=== PATIENT | female | born 1950 | race Hispanic/Latino ===

== ENCOUNTER 2019-06-20 22:15 | Emergency (ER) | payer OTHER ==
[2019-06-20 23:18] LABS: BASOPHILS % (AUTO) 0.4 % (0.0-5.0); EOSINOPHILS % (AUTO) 0.3 % (0.0-8.0); HEMATOCRIT 40.6 % (36-48); LYMPHOCYTES % (AUTO) 11.2 % (21.0-51.0); MEAN CORPUSCULAR HEMOGLOBIN 30.2 pg (27.0-33.0); MEAN CORPUSCULAR VOLUME 88.7 fL (79-99); MONOCYTES % (AUTO) 4.7 % (3.0-13.0); NEUTROPHILS % (AUTO) 83.4 % (40.0-77.0); PLATELET COUNT (AUTO) 281 K/uL (130-400); RED BLOOD CELL COUNT(AUTO) 4.58 MIL/uL (4.00-5.50); RED CELL DISTRIBUTION WIDTH 16.7 % (11.0-15.5); WHITE BLOOD COUNT (AUTO) 10.2 K/uL (4.8-10.8)
[2019-06-20 23:27] LABS: CREATININE 0.8 mg/dL (0.5-1.5); POTASSIUM 3.9 mmol/L (3.5-5.1)
[2019-06-20 23:29] LABS: ALBUMIN 3.8 g/dL (3.5-5.0); BILIRUBIN,TOTAL 0.5 mg/dL (0.2-1.0); TOTAL PROTEIN, SERUM 7.1 g/dL (6.0-8.3)
[2019-06-20] MEDS ORDERED: ONDANSETRON HCL 4 MG/2 ML VIAL ONE (23:35)
[2019-06-20] MEDS ORDERED: MORPHINE SULFATE 4 MG/1ML SYG ONE (23:35)
[2019-06-20] MEDS ORDERED: SODIUM CHLORIDE 0.9% 1000ML 1,000 ML IV ONE (23:36)
[2019-06-20 23:47] LABS: APPEARANCE,URINE Clear (CLEAR); BILIRUBIN,URINE Negative (NEGATIVE); COLOR,URINE Yellow (YELLOW); GLUCOSE, URINE (UA) Negative (NEGATIVE); KETONES,URINE Negative (NEGATIVE); LEUKOCYTE ESTERASE ,URINE Trace (NEGATIVE); NITRATE,URINE Negative (NEGATIVE); OCCULT BLOOD,URINE Negative (NEGATIVE); PH,URINE 6.5 (5.0-8.0); PROTEIN,URINE Negative (NEGATIVE)
[2019-06-21 00:01] LABS: BACTERIA,URINE Rare /HPF (None Seen); RBC,URINE 0-1 /HPF (0-1); SQUAMOUS EPITHELIAL CELL,UR 0-2 /HPF (0-2); WBC,URINE 0-1 /HPF (0-1)
[2019-06-21] MEDS ORDERED: IOHEXOL-350 75 ML VIAL IV ONE (01:02)
[2019-06-21] MEDS ORDERED: FAMOTIDINE/PF 20 MG/2 ML VIAL IV ONE (02:22)
[2019-06-21] MEDS ORDERED: MAG HYDROX/AL HYDROX/SIMETH ES 30 ML SUSP UDCUP ONE (02:22)
[2019-06-21] MEDS ORDERED: LIDOCAINE HCL 2% VISCOUS 15 ML UDCUP ONE (02:22)
== END 2019-06-21 03:08 | disposition home or self-care (01) ==
LOC: EDH 22:15
DX: K29.70 Gastritis, unspecified, without bleeding (principal); K76.0 Fatty (change of) liver, not elsewhere classified; E66.9 Obesity, unspecified; E78.00 Pure hypercholesterolemia, unspecified; Z90.710 Acquired absence of both cervix and uterus; Z90.49 Acquired absence of other specified parts of digestive tract; Z98.890 Other specified postprocedural states; Z88.0 Allergy status to penicillin
CPT/HCPCS: 36415; 74177; 80053; 81001; 83690; 84484; 85025; 93005; 96361 ×2; 96374; 96375 ×2; 99285; J2270; J2405; J3490; J7030; Q9967

== ENCOUNTER 2023-04-05 08:11 | Observation (INO) | payer OTHER ==
[~2023-04-05] VITALS: Ht 152.4 cm; Wt 127.0 kg
[2023-04-05] MEDS ORDERED: ACETAMINOPHEN 325 MG TAB ONE (08:54)
[2023-04-05] MEDS ORDERED: ACETAMINOPHEN 325 MG TAB PO ONE (09:00)
[2023-04-05] MEDS ORDERED: LACTATED RINGERS 1000ML 1,710 ML IV ONE (09:00)
[2023-04-05 09:01] LABS: HEMATOCRIT 40.2 % (36-48); MEAN CORPUSCULAR HEMOGLOBIN 28.8 pg (27.0-33.0); MEAN CORPUSCULAR HGB CONC 33.3 g/dL (32.0-36.0); MEAN CORPUSCULAR VOLUME 86.5 fL (79-99); RED BLOOD CELL COUNT(AUTO) 4.65 MIL/uL (4.00-5.50); RED CELL DISTRIBUTION WIDTH 14.1 % (11.0-15.5)
[2023-04-05 09:05] LABS: APPEARANCE,URINE CLOUDY (CLEAR); BILIRUBIN,URINE NEGATIVE (NEGATIVE); COLOR,URINE YELLOW (YELLOW); GLUCOSE, URINE (UA) NEGATIVE (NEGATIVE); KETONES,URINE 10 mg/dL (NEGATIVE); LEUKOCYTE ESTERASE ,URINE 250 Leu/uL (NEGATIVE); NITRATE,URINE NEGATIVE (NEGATIVE); OCCULT BLOOD,URINE SMALL (NEGATIVE); PROTEIN,URINE 70 mg/dL (NEGATIVE); UROBILINOGEN,URINE 3 mg/dL (0.2-1.0)
[2023-04-05 09:12] LABS: MUCUS,URINE FEW LPF (None Seen); SQUAMOUS EPITHELIAL CELL,UR FEW /HPF (0-2)
[2023-04-05 09:18] LABS: POTASSIUM 4.1 mmol/L (3.5-5.1)
[2023-04-05 09:22] LABS: TOTAL PROTEIN, SERUM 7.7 g/dL (6.0-8.3)
[2023-04-05] MEDS ORDERED: LEVOFLOXACIN 750 MG/D5W 150ML BAG IV ONE (10:30)
[2023-04-05] MEDS ORDERED: LEVO50CA4 PO (11:34)
[2023-04-05] MEDS ORDERED: MELO10CA3 PO (11:34)
[2023-04-05] MEDS ORDERED: LOSA25TA41 PO (11:34)
[2023-04-05] MEDS ORDERED: ATOR10 PO (11:34)
[2023-04-05] MEDS ORDERED: LACTULOSE 20 GM/30 ML UDCUP PO PRN (13:00)
[2023-04-05] MEDS ORDERED: ZOLPIDEM TARTRATE 5 MG TAB PO PRN (13:00)
[2023-04-05] MEDS ORDERED: ONDANSETRON 4MG INJ IV PRN (13:00)
[2023-04-05] MEDS ORDERED: HYDRALAZINE 20MG/ML VIAL IV PRN (13:00)
[2023-04-05] MEDS ORDERED: NITROGLYCERIN 0.4 MG SL TAB SL PRN (13:00)
[2023-04-05] MEDS ORDERED: MAG/ALUM/SIMETH 30 ML UDCUP PO PRN (13:00)
[2023-04-05] MEDS ORDERED: ACETAMINOPHEN 325 MG TAB PO PRN ×2 (13:00)
[2023-04-05] MEDS ORDERED: KETOROLAC 10 MG TABLET PO PRN (13:00)
[2023-04-05] MEDS ORDERED: DIPHENHYDRAMINE HCL 25 MG CAPSULE PO PRN (13:00)
[2023-04-05] MEDS ORDERED: HYDROCODONE/ACETAMINOPHEN 7.5/325 MG TAB PO PRN (13:00)
[2023-04-05] MEDS ORDERED: GUAIFENESIN-DM 200/20 MG 10 ML PO PRN (13:00)
[2023-04-05] MEDS: 0.9%NACL 1000ML 1,000 ML IV SCH (14:17)
[2023-04-05] MEDS: FAMOTIDINE 20MG TAB PO SCH (20:55)
[2023-04-05] MEDS: HEPARIN 5,000 UNIT VIAL SQ SCH (20:55)
[2023-04-06] MEDS: 0.9%NACL 1000ML 1,000 ML IV SCH ×2 (01:17→09:00)
[2023-04-06 04:52] VITALS: BP 148/75
[2023-04-06 05:44] LABS: BASOPHILS % (AUTO) 0.4 % (0.0-5.0); EOSINOPHILS % (AUTO) 0.3 % (0.0-8.0); HEMATOCRIT 39.3 % (36-48); LYMPHOCYTES % (AUTO) 18.8 % (21.0-51.0); MEAN CORPUSCULAR HEMOGLOBIN 28.8 pg (27.0-33.0); MEAN CORPUSCULAR HGB CONC 32.3 g/dL (32.0-36.0); MEAN CORPUSCULAR VOLUME 89.1 fL (79-99); MONOCYTES % (AUTO) 10.3 % (3.0-13.0); NEUTROPHILS % (AUTO) 69.7 % (40.0-77.0); PLATELET COUNT (AUTO) 235 K/uL (130-400); RED BLOOD CELL COUNT(AUTO) 4.41 MIL/uL (4.00-5.50)
[2023-04-06 06:11] LABS: ALBUMIN 2.8 g/dL (3.5-5.0); CREATININE 0.9 mg/dL (0.5-1.5); MAGNESIUM 1.8 mg/dL (1.80-2.40); POTASSIUM 3.8 mmol/L (3.5-5.1); THYROID STIMULATING HORMONE 2.94 uIU/mL (0.36-3.74); TOTAL PROTEIN, SERUM 7.2 g/dL (6.0-8.3)
[2023-04-06 06:12] LABS: HEMOGLOBIN A1C 6.1 % (4.0-6.0)
[2023-04-06 08:00] VITALS: BP 152/55
[2023-04-06] MEDS: FAMOTIDINE 20MG TAB PO SCH (08:08)
[2023-04-06] MEDS: HEPARIN 5,000 UNIT VIAL SQ SCH (08:13)
[2023-04-06] MEDS ORDERED: LEVOFLOXACIN 750 MG TABLET PO SCH (09:00)
[2023-04-06 11:47] VITALS: BP 120/73
[2023-04-06] MEDS ORDERED: LEVO750T68 PO (14:22)
[2023-04-06] MEDS ORDERED: FAMO20TA8 PO (14:22)
== END 2023-04-06 15:45 | disposition home or self-care (01) ==
LOC: EDH 08:11 → EDHIP 13:00 → 4CH 04-06 04:40
PROVIDERS: ADMIT Internal Medicine Critical Care Medicine; ATTEND Internal Medicine Critical Care Medicine
DX: A41.9 Sepsis, unspecified organism (principal); Z20.822 Contact with and (suspected) exposure to COVID-19; N30.00 Acute cystitis without hematuria; E03.9 Hypothyroidism, unspecified; E78.5 Hyperlipidemia, unspecified; M19.90 Unspecified osteoarthritis, unspecified site; Z90.710 Acquired absence of both cervix and uterus; Z90.49 Acquired absence of other specified parts of digestive tract; Z96.651 Presence of right artificial knee joint; Z79.01 Long term (current) use of anticoagulants; Z88.0 Allergy status to penicillin; Z79.899 Other long term (current) drug therapy; Z98.890 Other specified postprocedural states
CPT/HCPCS: 96372 ×2; 96361 ×2; 96365; 96366; 99285; 80053 ×2; 83690; 85027; 87040 ×2; 87088; 87804 ×2; 83605 ×2; 81001; 36415 ×2; 87635; 71045; 93005; 83036; 84443; 82550; 83735; 84484; 82140; 85025; 97161; 97116; 84145; G0378 ×26; C9803; J1956; J1644 ×2